=== PATIENT | female | born 1980 ===

== ENCOUNTER 2017-11-06 18:52 | Inpatient (IN) ==
[2017-11-06 20:48] LABS: Basophils % 0.3 % (0.0-0.8); Hematocrit 38.2 VOL% (35.7-47.0); Hemoglobin 13.4 GM/DL (12.0-16.0); Immature Granulocytes % 0.3 %; Immature Granulocytes Absolute 0.04 #; Lymphocytes # 2.5 10*3/uL (1.4-4.0); Lymphocytes % 18.2 % (21.3-54.2); Mean Corpuscular HGB Conc 35.1 GM/DL (32-36); Mean Corpuscular Hemoglobin 32 PG (27-34); Mean Corpuscular Volume 90.3 FL (87-102); Mean Platelet Volume 9.7 FL (9.6-12.0); Monocytes # 0.7 10*3/uL (0.11-0.8); Monocytes % 5.4 % (1.7-12.7); Neutrophils # 10.2 10*3/uL (1.4-7.4); Neutrophils % 75.8 % (38.7-73.9); Platelet Count 200 T/CUMM (130-400); Red Blood Count 4.23 MC/CUMM (3.8-5.5); Red Cell Distribution Width 11.9 % (9.3-17.3); White Blood Count 13.5 T/CUMM (4-12)
[2017-11-06 21:09] LABS: Albumin 3.5 G/DL (3.4-5.0); Bilirubin,Total 0.4 MG/DL (0.2-1.0); Calcium 8.5 MG/DL (8.5-10.1); Osmolality,Calculated 287.8 MOS/KG (273-304); Potassium 4.9 MMOL/L (3.5-5.1); Total Protein 7.4 G/DL (6.4-8.3)
[2017-11-06] MEDS ORDERED: INSULIN REGULAR 100 UNIT/ML ONE (21:22)
[2017-11-06] MEDS ORDERED: MAGNESIUM SULF RIDER 2 GM in PREMIX 1 EACH IV PRN (21:25)
[2017-11-06] MEDS ORDERED: POTASSIUM CHLORIDE RIDER 10 MEQ in PREMIX 1 EACH IV PRN (21:25)
[2017-11-06] MEDS ORDERED: DEXTROSE 50% 25 GM/50 ML VIAL IV PRN ×2 (21:25)
[2017-11-06] MEDS ORDERED: MAGNESIUM SULF RIDER 4 GM in PREMIX 1 EACH IV PRN (21:25)
[2017-11-06] MEDS ORDERED: SODIUM BICARB INJ 100 MEQ in STERILE WATER INJ 400 ML IV PRN (21:25)
[2017-11-06] MEDS ORDERED: SODIUM PHOSPHATE INJ 26.1 MMOL in SODIUM CHLORIDE 0.9% 250 ML IV PRN (21:25)
[2017-11-06] MEDS ORDERED: INSULIN REGULAR DRIP 100 ML IV SCH (21:30)
[2017-11-06] MEDS ORDERED: ONDANSETRON 4 MG/2 ML VIAL IV PRN (21:41)
[2017-11-06] MEDS ORDERED: ACETAMINOPHEN 325 MG TABLET PO PRN (21:41)
[2017-11-06] MEDS ORDERED: guaiFENesin 200 MG/10 ML UDCUP PO PRN (21:50)
[2017-11-07] MEDS: SODIUM CHLORIDE 0.9% 1,000 ML IV SCH ×4 (00:33→12:00)
[2017-11-07] MEDS ORDERED: SODIUM CHLORIDE 0.9% 1,000 ML IV SCH (02:25)
[2017-11-07 04:52] LABS: Basophils % 0.4 % (0.0-0.8); Eosinophils % 0.3 % (0.00-10.9); Hemoglobin 11.9 GM/DL (12.0-16.0); Immature Granulocytes % 0.3 %; Immature Granulocytes Absolute 0.03 #; Lymphocytes # 2.8 10*3/uL (1.4-4.0); Lymphocytes % 25.7 % (21.3-54.2); Mean Corpuscular Hemoglobin 32 PG (27-34); Mean Corpuscular Volume 89.9 FL (87-102); Mean Platelet Volume 9.7 FL (9.6-12.0); Monocytes # 1.3 10*3/uL (0.11-0.8); Monocytes % 11.7 % (1.7-12.7); Neutrophils # 6.6 10*3/uL (1.4-7.4); Neutrophils % 61.6 % (38.7-73.9); Platelet Count 180 T/CUMM (130-400); Red Blood Count 3.78 MC/CUMM (3.8-5.5); Red Cell Distribution Width 12.1 % (9.3-17.3); White Blood Count 10.8 T/CUMM (4-12)
[2017-11-07 05:26] LABS: Magnesium 1.8 MG/DL (1.8-2.4)
[2017-11-07 05:31] LABS: Calcium 7.6 MG/DL (8.5-10.1); Osmolality,Calculated 276.5 MOS/KG (273-304); Potassium 3.8 MMOL/L (3.5-5.1)
[2017-11-07] MEDS ORDERED: POTASSIUM CHLORIDE INJ 20 MEQ in SODIUM CHLORIDE 0.9% 250 ML IV ONE (06:00)
[2017-11-07 09:10] LABS: Calcium 7.5 MG/DL (8.5-10.1); Osmolality,Calculated 277.7 MOS/KG (273-304); Potassium 3.9 MMOL/L (3.5-5.1)
[2017-11-07] MEDS: INSULIN LISPRO 100 UNIT/ML SUBCUT SCH ×3 (12:04→22:17)
[2017-11-07 12:07] LABS: Allen Test Positive; Pt O2 Delivery Device Room Air
[2017-11-07 12:08] LABS: ABG Base Excess -5.7 MMOL/L (-2.5-2.5); ABG HCO3 19.8 MMOL/L (20-26); ABG Oxygen Saturation 98.2 % (95-100); ABG TCO2 15.9 MMOL/L (23-27)
[2017-11-07 12:25] LABS: Apearance,Urine Cloudy (Clear); Bilirubin,Urine Negative (Negative); Blood, Urine Large mg/dL (Negative); Glucose,Urine (UA) >1000 mg/dL (Negative); Ketones,Urine 100 mg/dL (Negative); Nitrite,Urine Negative (Negative); Protein,Urine >500 MG/DL; Urine Color Yellow (Yellow); Urine Specific Gravity 1.025 (1.001-1.035); Urine Urobilinogen 0.2 EU/DL (0.2-1.0)
[2017-11-07 12:39] LABS: Hyaline Casts,Urine 0-5 /LPF (0-3); RBC,Urine 20-30 /HPF (0-4)
[2017-11-07] MEDS ORDERED: SODIUM CHLORIDE 0.45% 1,000 ML IV SCH (14:25)
[2017-11-07 15:13] LABS: Calcium 7.4 MG/DL (8.5-10.1); Osmolality,Calculated 272.4 MOS/KG (273-304); Potassium 3.6 MMOL/L (3.5-5.1)
[2017-11-07] MEDS: INSULIN NPH/REGULAR 70/30 100 UNIT/ML SUBCUT SCH (16:58)
[2017-11-07] MEDS: LACTATED RINGERS 1,000 ML IV SCH (16:59)
[2017-11-07] MEDS: FLUTICASONE 50 MCG NASAL SPRAY 16 GM BOTTLE BOTH NARES SCH (22:12)
[2017-11-08] MEDS: LACTATED RINGERS 1,000 ML IV SCH ×3 (03:01→22:21)
[2017-11-08 04:53] LABS: Basophils % 0.5 % (0.0-0.8); Eosinophils # 0.3 10*3/uL (0.0-0.87); Eosinophils % 3.9 % (0.00-10.9); Hematocrit 31.2 VOL% (35.7-47.0); Immature Granulocytes % 0.9 %; Immature Granulocytes Absolute 0.07 #; Lymphocytes # 2.9 10*3/uL (1.4-4.0); Lymphocytes % 37.1 % (21.3-54.2); Mean Corpuscular HGB Conc 35.3 GM/DL (32-36); Mean Corpuscular Hemoglobin 32 PG (27-34); Mean Corpuscular Volume 90.2 FL (87-102); Mean Platelet Volume 9.5 FL (9.6-12.0); Monocytes # 0.5 10*3/uL (0.11-0.8); Monocytes % 6.1 % (1.7-12.7); Neutrophils % 51.5 % (38.7-73.9); Platelet Count 158 T/CUMM (130-400); Red Blood Count 3.46 MC/CUMM (3.8-5.5); White Blood Count 7.9 T/CUMM (4-12)
[2017-11-08 05:17] LABS: Calcium 7.9 MG/DL (8.5-10.1); Osmolality,Calculated 273.8 MOS/KG (273-304); Potassium 3.6 MMOL/L (3.5-5.1)
[2017-11-08] MEDS: guaiFENesin/CODEINE 5 ML LIQUID PO PRN (07:54)
[2017-11-08] MEDS: INSULIN NPH/REGULAR 70/30 100 UNIT/ML SUBCUT SCH ×2 (07:54→17:42)
[2017-11-08] MEDS: INSULIN LISPRO 100 UNIT/ML SUBCUT SCH ×4 (07:57→21:17)
[2017-11-08] MEDS: FLUTICASONE 50 MCG NASAL SPRAY 16 GM BOTTLE BOTH NARES SCH ×2 (08:01→22:14)
[2017-11-08] MEDS: MULTIVITAMIN (PRENATAL) TABLET PO SCH (08:01)
[2017-11-08] MEDS ORDERED: FLUTICASONE 50 MCG NASAL SPRAY 16 GM BOTTLE BOTH NARES SCH (09:00)
[2017-11-08] MEDS: AZITHROMYCIN 250 MG TABLET PO SCH (09:03)
[2017-11-08] MEDS: OSELTAMIVIR 75 MG CAPSULE PO SCH ×2 (09:03→22:13)
[2017-11-09] MEDS: guaiFENesin/CODEINE 5 ML LIQUID PO PRN ×2 (07:53→16:48)
[2017-11-09] MEDS: LACTATED RINGERS 1,000 ML IV SCH (07:55)
[2017-11-09] MEDS: FLUTICASONE 50 MCG NASAL SPRAY 16 GM BOTTLE BOTH NARES SCH ×2 (08:07→21:34)
[2017-11-09] MEDS: INSULIN LISPRO 100 UNIT/ML SUBCUT SCH ×4 (08:08→21:00)
[2017-11-09] MEDS: MULTIVITAMIN (PRENATAL) TABLET PO SCH (08:32)
[2017-11-09] MEDS: AZITHROMYCIN 250 MG TABLET PO SCH (08:33)
[2017-11-09] MEDS: INSULIN NPH/REGULAR 70/30 100 UNIT/ML SUBCUT SCH ×2 (08:33→16:43)
[2017-11-09] MEDS: OSELTAMIVIR 75 MG CAPSULE PO SCH ×2 (08:33→21:34)
[2017-11-09] MEDS: ALBUTEROL 1.25 MG/3 ML NEB RESP TX SCH ×3 (10:59→20:16)
[2017-11-09] MEDS ORDERED: MAGNESIUM HYDROXIDE SUSP 30 ML UDCUP PO PRN (15:04)
[2017-11-09] MEDS: METHYLDOPA 250 MG TABLET PO SCH (21:34)
[2017-11-10] MEDS: ALBUTEROL 1.25 MG/3 ML NEB RESP TX SCH ×3 (01:20→14:27)
[2017-11-10] MEDS: INSULIN LISPRO 100 UNIT/ML SUBCUT SCH ×2 (08:45→12:45)
[2017-11-10] MEDS: INSULIN NPH/REGULAR 70/30 100 UNIT/ML SUBCUT SCH (08:46)
[2017-11-10] MEDS: MULTIVITAMIN (PRENATAL) TABLET PO SCH (09:36)
[2017-11-10] MEDS: AZITHROMYCIN 250 MG TABLET PO SCH (09:36)
[2017-11-10] MEDS: OSELTAMIVIR 75 MG CAPSULE PO SCH (09:36)
[2017-11-10] MEDS: METHYLDOPA 250 MG TABLET PO SCH (09:37)
[2017-11-10] MEDS: FLUTICASONE 50 MCG NASAL SPRAY 16 GM BOTTLE BOTH NARES SCH (09:38)
[2017-11-10 11:18] VITALS: BP 131/84
[2017-11-10 14:05] LABS: Hepatitis B Surface Ag Quant 0.17 Index; Hepatitis B Surface Ag Result Negative (Negative); Rubella Antibody IgG 5.1 IU/ML
[2017-11-10 14:35] LABS: HIV Antigen/Antibody Result Nonreactive (Nonreactive)
== END 2017-11-10 14:40 | disposition home or self-care (01) | DRG 781 ==
LOC: SUATTDRO 20:16 → N.ICU 20:16 → N.OB 11-08 13:15
PROVIDERS: ADMIT Internal Medicine; ATTEND Internal Medicine

== ENCOUNTER 2021-07-13 22:05 | Inpatient (IN) ==
[2021-07-13] MEDS ORDERED: MEPERIDINE 50 MG/1 ML VIAL IV PRN (22:41)
[2021-07-13] MEDS ORDERED: BUTORPHANOL 2 MG/ML VIAL IV PRN (22:41)
[2021-07-13] MEDS ORDERED: metFORMIN 500 MG TABLET PO SCH (23:00)
[2021-07-13] MEDS ORDERED: INSULIN ASPART PROTAMINE/ASPART 70/30 100 UNIT/ML SUBCUT SCH (23:00)
[2021-07-13 23:02] LABS: Basophils % 0.2 % (0.0-0.8); Eosinophils # 0.2 10*3/uL (0.0-0.87); Eosinophils % 2.2 % (0.00-10.9); Hematocrit 30.2 VOL% (35.7-47.0); Hemoglobin 10.2 GM/DL (12.0-16.0); Immature Granulocytes % 0.4 %; Immature Granulocytes Absolute 0.04 #; Lymphocytes # 2.4 10*3/uL (1.4-4.0); Lymphocytes % 24.6 % (21.3-54.2); Mean Corpuscular HGB Conc 33.8 GM/DL (32-36); Mean Corpuscular Volume 92.6 FL (87-102); Mean Platelet Volume 8.9 FL (9.6-12.0); Monocytes % 7.4 % (1.7-12.7); Neutrophils % 65.2 % (38.7-73.9); Platelet Count 211 T/CUMM (130-400); Red Blood Count 3.26 MC/CUMM (3.8-5.5); White Blood Count 9.7 T/CUMM (4-12)
[2021-07-13 23:27] LABS: Alanine Aminotransferase 9 U/L (13-56); Albumin 1.6 G/DL (3.4-5.0); Alkaline Phosphatase 90 U/L (45-117); Aspartate Amino Transferase 10 U/L (0-37); Bilirubin,Total < 0.39 MG/DL (0.20-1.00); Blood Urea Nitrogen 12 MG/DL (7-18); Calcium 7.9 MG/DL (8.5-10.1); Carbon Dioxide 21 MMOL/L (21-32); Estimated Glom Filtration Rate 149 ML/MIN; Glucose 162 MG/DL (74-106); Osmolality,Calculated 278.7 MOS/KG (273-304); Potassium 4.5 MMOL/L (3.5-5.1); Sodium 138 MMOL/L (136-145); Total Protein 5.9 G/DL (6.4-8.2); Uric Acid 5.2 MG/DL (2.6-6.0)
[2021-07-13] MEDS ORDERED: INSULIN ASPART PROTAMINE/ASPART 70/30 100 UNIT/ML SUBCUT ONE (23:43)
[2021-07-13] MEDS ORDERED: INSULIN GLARGINE 100 UNIT/ML SUBCUT ONE (23:44)
[2021-07-13] MEDS: LACTATED RINGERS 1,000 ML IV SCH (23:53)
[2021-07-14 00:44] LABS: Bacteria,Urine Occasional /HPF (Few); Bilirubin,Urine Negative (Negative); Blood, Urine Negative (Negative); Glucose,Urine (UA) 50 mg/dL (Negative); Ketones,Urine Negative (Negative); Mucus,Urine Occasional /LPF (Occasional); Nitrite,Urine Negative (Negative); Protein,Urine >=500 MG/DL; RBC,Urine 11 /HPF (0-4); Squamous Epithelial Cell,Urine Occasional /HPF (0-10); Urine Appearance Slightly Hazy (Clear); Urine Color Yellow (Yellow); Urine Specific Gravity 1.024 (1.001-1.035); Urine Urobilinogen < 2.0 EU/DL (0.2-1.0)
[2021-07-14 00:46] LABS: INR 0.9; PT Patient Result 9.7 SECS (10.5-12.0)
[2021-07-14 03:29] LABS: Protein/Creatinine Ratio,Urine 9.4 RATIO
[2021-07-14] MEDS ORDERED: OXYTOCIN/LR 30 UNIT/1,000 ML BAG IV ONE (07:29)
[2021-07-14] MEDS ORDERED: OXYTOCIN 10 UNIT/ML VIAL IM ONE (07:29)
[2021-07-14] MEDS ORDERED: FAMOTIDINE 20 MG/2 ML VIAL IV ONE (07:30)
[2021-07-14] MEDS ORDERED: CITRIC ACID/SODIUM CITRATE 30 ML UDCUP PO ONE (07:30)
[2021-07-14] MEDS ORDERED: INSULIN GLARGINE 100 UNIT/ML SUBCUT SCH (09:00)
[2021-07-14] MEDS ORDERED: ASPIRIN CHEW 81 MG TABLET PO SCH (09:00)
[2021-07-14] MEDS: LACTATED RINGERS 1,000 ML IV SCH (09:24)
[2021-07-14 09:40] LABS: Bilirubin,Urine Negative (Negative); Blood, Urine Small mg/dL (Negative); Glucose,Urine (UA) Negative (Negative); Ketones,Urine Negative (Negative); Mucus,Urine Occasional /LPF (Occasional); Nitrite,Urine Negative (Negative); Protein,Urine >=500 MG/DL; RBC,Urine 3 /HPF (0-4); Squamous Epithelial Cell,Urine Occasional /HPF (0-10); Urine Appearance CLEAR (Clear); Urine Color Yellow (Yellow); Urine Specific Gravity 1.011 (1.001-1.035); Urine Urobilinogen < 2.0 EU/DL (0.2-1.0)
[2021-07-14] MEDS: ONDANSETRON 4 MG/2 ML VIAL IV PRN ×2 (09:46→16:26)
[2021-07-14] MEDS ORDERED: BUPIVACAINE SPINAL 0.75% 2 ML AMP SPINAL ONE (10:08)
[2021-07-14] MEDS ORDERED: ONDANSETRON 4 MG/2 ML VIAL ONE (10:09)
[2021-07-14] MEDS ORDERED: ACETAMINOPHEN INJ 1,000 MG/100 ML VIAL IV ONE (10:44)
[2021-07-14] MEDS ORDERED: LACTATED RINGERS 1,000 ML IV ONE (10:48)
[2021-07-14 11:05] LABS: Cord Venous Blood HCO3 22.2 MMOL/L
[2021-07-14] MEDS ORDERED: OXYTOCIN/LR 20 UNIT/1,000 ML BAG IV ONE (11:29)
[2021-07-14] MEDS ORDERED: GLUCAGON 1 MG VIAL IM PRN (11:29)
[2021-07-14] MEDS ORDERED: SIMETHICONE CHEW 80 MG TABLET PO PRN (11:29)
[2021-07-14] MEDS ORDERED: ACETAMINOPHEN 325 MG TABLET PO PRN (11:29)
[2021-07-14] MEDS ORDERED: ONDANSETRON 4 MG/2 ML VIAL IV PRN ×2 (11:29→16:20)
[2021-07-14] MEDS ORDERED: DEXTROSE 50% 25 GM/50 ML VIAL IV PRN ×2 (11:29→12:11)
[2021-07-14] MEDS ORDERED: RHO(D) IMMUNE GLOBULIN 300 MCG SYRINGE IM ONE (11:29)
[2021-07-14] MEDS ORDERED: MAGNESIUM HYDROXIDE SUSP 30 ML UDCUP PO PRN (11:29)
[2021-07-14] MEDS ORDERED: LACTATED RINGERS 1,000 ML IV SCH (11:30)
[2021-07-14] MEDS: FUROSEMIDE 40 MG/4 ML VIAL IV SCH ×3 (12:23→23:58)
[2021-07-14] MEDS: INSULIN REGULAR 100 UNIT/ML SUBCUT SCH ×2 (14:56→21:36)
[2021-07-14] MEDS ORDERED: MEPERIDINE 50 MG/1 ML VIAL IV PRN (15:43)
[2021-07-14 17:42] LABS: Basophils % 0.2 % (0.0-0.8); Eosinophils % 0.2 % (0.00-10.9); Hematocrit 29.4 VOL% (35.7-47.0); Hemoglobin 10.2 GM/DL (12.0-16.0); Immature Granulocytes % 0.5 %; Immature Granulocytes Absolute 0.07 #; Lymphocytes # 1.4 10*3/uL (1.4-4.0); Lymphocytes % 10.5 % (21.3-54.2); Mean Corpuscular HGB Conc 34.7 GM/DL (32-36); Mean Corpuscular Volume 91.3 FL (87-102); Mean Platelet Volume 8.8 FL (9.6-12.0); Monocytes % 4.5 % (1.7-12.7); Neutrophils % 84.1 % (38.7-73.9); Platelet Count 209 T/CUMM (130-400); Red Blood Count 3.22 MC/CUMM (3.8-5.5); Red Cell Distribution Width 12.6 % (9.3-17.3); White Blood Count 13.2 T/CUMM (4-12)
[2021-07-14] MEDS: ACETAMINOPHEN 500 MG TABLET PO SCH ×2 (18:06→23:50)
[2021-07-14] MEDS: IBUPROFEN 800 MG TABLET PO PRN (21:08)
[2021-07-14] MEDS: DOCUSATE SODIUM 100 MG CAPSULE PO SCH (21:08)
[2021-07-15] MEDS: INSULIN REGULAR 100 UNIT/ML SUBCUT SCH ×5 (00:13→21:18)
[2021-07-15 06:05] LABS: Basophils % 0.4 % (0.0-0.8); Eosinophils # 0.2 10*3/uL (0.0-0.87); Eosinophils % 2.1 % (0.00-10.9); Hematocrit 27.1 VOL% (35.7-47.0); Hemoglobin 9.3 GM/DL (12.0-16.0); Immature Granulocytes % 0.3 %; Immature Granulocytes Absolute 0.03 #; Lymphocytes # 2.3 10*3/uL (1.4-4.0); Mean Corpuscular HGB Conc 34.3 GM/DL (32-36); Mean Corpuscular Volume 93.1 FL (87-102); Mean Platelet Volume 9.1 FL (9.6-12.0); Monocytes % 7.5 % (1.7-12.7); Neutrophils % 65.7 % (38.7-73.9); Platelet Count 202 T/CUMM (130-400); Red Blood Count 2.91 MC/CUMM (3.8-5.5); Red Cell Distribution Width 12.9 % (9.3-17.3); White Blood Count 9.4 T/CUMM (4-12)
[2021-07-15] MEDS: ACETAMINOPHEN 500 MG TABLET PO SCH (06:13)
[2021-07-15] MEDS: DOCUSATE SODIUM 100 MG CAPSULE PO SCH ×2 (09:45→21:22)
[2021-07-15] MEDS: FERROUS SULFATE 325 MG TABLET PO SCH (09:45)
[2021-07-15] MEDS: MULTIVITAMIN (PRENATAL) TABLET PO SCH (09:46)
[2021-07-15] MEDS: METOCLOPRAMIDE 10 MG TABLET PO SCH ×2 (16:29→23:26)
[2021-07-15] MEDS: IBUPROFEN 800 MG TABLET PO PRN (16:30)
[2021-07-16] MEDS: METOCLOPRAMIDE 10 MG TABLET PO SCH ×2 (04:06→11:52)
[2021-07-16] MEDS: IBUPROFEN 800 MG TABLET PO PRN ×2 (04:07→12:04)
[2021-07-16] MEDS: FERROUS SULFATE 325 MG TABLET PO SCH (09:11)
[2021-07-16] MEDS: DOCUSATE SODIUM 100 MG CAPSULE PO SCH (09:11)
[2021-07-16] MEDS: MULTIVITAMIN (PRENATAL) TABLET PO SCH (09:11)
[2021-07-16] MEDS: INSULIN REGULAR 100 UNIT/ML SUBCUT SCH ×2 (11:10→11:52)
[2021-07-16 11:21] VITALS: BP 146/83
[2021-07-16] MEDS ORDERED: DIPH/TET/ACEL PERT BOOSTER VACCINE 0.5 ML VIAL IM ONE (11:55)
[2021-07-16] MEDS ORDERED: MEASLES/MUMPS/RUBELLA VACCINE 0.5 ML VIAL SUBCUT ONE (12:43)
== END 2021-07-16 13:00 | disposition home or self-care (01) | DRG 539 ==
LOC: N.LDOUT 22:05 → N.LD 22:08 → N.OB 07-14 14:22
PROVIDERS: ADMIT Obstetrics & Gynecology; ATTEND Obstetrics & Gynecology